=== PATIENT | female | born 1950 | race Caucasian/White ===

== ENCOUNTER 2018-06-29 05:35 | Inpatient (IN) ==
[2018-06-22 13:24] LABS: Basophils % 0.5 % (0.0-0.8); Eosinophils # 0.1 10*3/uL (0.0-0.87); Eosinophils % 1.8 % (0.00-10.9); Hematocrit 42.7 VOL% (35.7-47.0); Hemoglobin 13.5 GM/DL (12.0-16.0); Immature Granulocytes % 0.3 %; Immature Granulocytes Absolute 0.02 #; Lymphocytes % 25.4 % (21.3-54.2); Mean Corpuscular HGB Conc 31.6 GM/DL (32-36); Mean Corpuscular Hemoglobin 30 PG (27-34); Mean Corpuscular Volume 94.5 FL (87-102); Mean Platelet Volume 12.6 FL (9.6-12.0); Monocytes # 0.6 10*3/uL (0.11-0.8); Monocytes % 7.4 % (1.7-12.7); Neutrophils % 64.6 % (38.7-73.9); Platelet Count 144 T/CUMM (130-400); Red Blood Count 4.52 MC/CUMM (3.8-5.5); Red Cell Distribution Width 13.2 % (9.3-17.3); White Blood Count 7.8 T/CUMM (4-12)
[2018-06-22 13:33] LABS: Apearance,Urine Slightly Hazy (Clear); Bilirubin,Urine Negative (Negative); Blood, Urine Negative (Negative); Glucose,Urine (UA) Negative (Negative); Ketones,Urine Negative (Negative); Mucus,Urine Occasional /LPF (Occasional); Nitrite,Urine Negative (Negative); PT Patient Result 10.8 SECS; Partial Thromboplastin Time 27.9 SECS (0-40); Protein,Urine Negative; RBC,Urine 1 /HPF (0-4); Squamous Epithelial Cell,Urine Occasional /HPF (0-10); Transitional Epi Cells,Urine Occasional /HPF (<1); Urine Color Yellow (Yellow); Urine Specific Gravity 1.024 (1.001-1.035); Urine Urobilinogen < 2.0 EU/DL (0.2-1.0); WBC,Urine 100 /HPF (0-6)
[2018-06-22 13:48] LABS: Albumin 3.5 G/DL (3.4-5.0); Bilirubin,Total 0.4 MG/DL (0.2-1.0); Osmolality,Calculated 281.4 MOS/KG (273-304); Potassium 4.1 MMOL/L (3.5-5.1); Total Protein 7.2 G/DL (6.4-8.3)
[2018-06-29] MEDS ORDERED: ROPIVACAINE 0.5% 30 ML VIAL ONE (06:24)
[2018-06-29] MEDS ORDERED: ceFAZolin 1,000 MG VIAL ONE (06:40)
[2018-06-29] MEDS ORDERED: VANCOMYCIN 1,000 MG VIAL ONE (06:40)
[2018-06-29] MEDS ORDERED: LACTATED RINGERS 1,000 ML IV SCH (07:00)
[2018-06-29] MEDS ORDERED: VANCOMYCIN INJ 1,000 MG in SODIUM CHLORIDE 0.9% 250 ML IV ONE (07:00)
[2018-06-29] MEDS ORDERED: ceFAZolin 1,000 MG in SYRINGE 1 EACH IV ONE (07:00)
[2018-06-29] MEDS ORDERED: BUPIVACAINE SPINAL 0.75% 2 ML AMP SPINAL ONE (07:05)
[2018-06-29] MEDS ORDERED: TRANEXAMIC ACID 1,000 MG/10 ML VIAL ONE (07:44)
[2018-06-29] MEDS ORDERED: BACITRACIN OINT 0.9 GM PACK TOP ONE (08:12)
[2018-06-29] MEDS ORDERED: diphenhydrAMINE CAP 25 MG CAPSULE PO PRN (08:36)
[2018-06-29] MEDS ORDERED: oxyCODONE IR 5 MG TABLET PO PRN (08:36)
[2018-06-29] MEDS ORDERED: MAGNESIUM HYDROXIDE SUSP 30 ML UDCUP PO PRN (08:36)
[2018-06-29] MEDS ORDERED: ZALEPLON 5 MG CAPSULE PO PRN (08:36)
[2018-06-29] MEDS ORDERED: MORPHINE 4 MG/1 ML VIAL IV PRN ×2 (08:36)
[2018-06-29] MEDS ORDERED: ONDANSETRON 4 MG/2 ML VIAL IV PRN (08:44)
[2018-06-29] MEDS: HYDROmorphone 2 MG/1 ML VIAL IV PRN ×2 (08:50→09:00)
[2018-06-29] MEDS ORDERED: fentaNYL 100 MCG/2 ML VIAL ONE (08:51)
[2018-06-29] MEDS ORDERED: MIDAZOLAM 2 MG/2 ML VIAL ONE (08:52)
[2018-06-29] MEDS ORDERED: SODIUM CHLORIDE 0.9% 250 ML IV ONE (08:52)
[2018-06-29] MEDS ORDERED: PROPOFOL 500 MG/50 ML BOTTLE IV ONE (08:52)
[2018-06-29] MEDS ORDERED: LACTATED RINGERS 1,000 ML IV ONE (08:52)
[2018-06-29] MEDS ORDERED: DEXAMETHASONE 4 MG/1 ML VIAL ONE (08:52)
[2018-06-29] MEDS: ONDANSETRON 4 MG/2 ML VIAL IV PRN ×2 (10:11→17:23)
[2018-06-29] MEDS: DOCUSATE SODIUM 100 MG CAPSULE PO SCH ×2 (10:12→21:20)
[2018-06-29] MEDS: KETOROLAC 30 MG/1 ML VIAL IV SCH ×3 (10:12→21:18)
[2018-06-29] MEDS: cycloSPORINE OPH EMUL 1 VIAL BOTH EYES SCH ×2 (10:12→21:19)
[2018-06-29] MEDS: ASPIRIN EC 81 MG TABLET PO SCH (10:12)
[2018-06-29] MEDS: LACTATED RINGERS 1,000 ML IV SCH ×2 (11:12→20:52)
[2018-06-29] MEDS: ceFAZolin 2,000 MG in PREMIX 1 EACH IV SCH ×2 (13:59→23:27)
[2018-06-29] MEDS: ACETAMINOPHEN 500 MG TABLET PO SCH ×2 (14:00→18:42)
[2018-06-29] MEDS: oxyCODONE IR 5 MG TABLET PO PRN (17:22)
[2018-06-29] MEDS: RALOXIFENE 60 MG TABLET PO SCH (21:19)
[2018-06-29] MEDS: LISINOPRIL 20 MG TABLET PO SCH (21:19)
[2018-06-29] MEDS: PITAVASTATIN 2 MG TABLET PO SCH (21:19)
[2018-06-29] MEDS: NEBIVOLOL 5 MG TABLET PO SCH (21:20)
[2018-06-30] MEDS: ACETAMINOPHEN 500 MG TABLET PO SCH ×2 (01:57→06:27)
[2018-06-30] MEDS: KETOROLAC 30 MG/1 ML VIAL IV SCH (03:20)
[2018-06-30 06:06] LABS: Basophils % 0.2 % (0.0-0.8); Eosinophils % 0.1 % (0.00-10.9); Hematocrit 33.9 VOL% (35.7-47.0); Hemoglobin 10.7 GM/DL (12.0-16.0); Immature Granulocytes % 0.3 %; Immature Granulocytes Absolute 0.04 #; Lymphocytes # 1.6 10*3/uL (1.4-4.0); Lymphocytes % 12.5 % (21.3-54.2); Mean Corpuscular HGB Conc 31.6 GM/DL (32-36); Mean Corpuscular Hemoglobin 30 PG (27-34); Mean Corpuscular Volume 93.9 FL (87-102); Mean Platelet Volume 13.2 FL (9.6-12.0); Monocytes # 1.4 10*3/uL (0.11-0.8); Monocytes % 10.6 % (1.7-12.7); Neutrophils % 76.3 % (38.7-73.9); Platelet Count 110 T/CUMM (130-400); Red Blood Count 3.61 MC/CUMM (3.8-5.5); Red Cell Distribution Width 13.2 % (9.3-17.3)
[2018-06-30 06:16] LABS: Calcium 8.5 MG/DL (8.5-10.1); Osmolality,Calculated 283.1 MOS/KG (273-304); Potassium 4.1 MMOL/L (3.5-5.1)
[2018-06-30] MEDS: DOCUSATE SODIUM 100 MG CAPSULE PO SCH ×2 (09:05→21:14)
[2018-06-30] MEDS: CHOLECALCIFEROL 400 UNIT TABLET PO SCH (09:05)
[2018-06-30] MEDS: CLOPIDOGREL 75 MG TABLET PO SCH (09:05)
[2018-06-30] MEDS: LACTOBACILLUS ACIDOPHILUS/BULGARICUS CAPLET PO SCH (09:05)
[2018-06-30] MEDS: PANTOPRAZOLE 40 MG TABLET PO SCH (09:05)
[2018-06-30] MEDS: ASPIRIN EC 81 MG TABLET PO SCH (09:05)
[2018-06-30] MEDS: cycloSPORINE OPH EMUL 1 VIAL BOTH EYES SCH ×2 (09:06→21:12)
[2018-06-30] MEDS: oxyCODONE IR 5 MG TABLET PO PRN (11:57)
[2018-06-30] MEDS: CLORAZEPATE 3.75 MG TABLET PO SCH (14:58)
[2018-06-30] MEDS: CELECOXIB 200 MG CAPSULE PO SCH (15:45)
[2018-06-30] MEDS: ONDANSETRON 4 MG/2 ML VIAL IV PRN (21:09)
[2018-06-30] MEDS: LISINOPRIL 20 MG TABLET PO SCH (21:13)
[2018-06-30] MEDS: RALOXIFENE 60 MG TABLET PO SCH (21:13)
[2018-06-30] MEDS: NEBIVOLOL 5 MG TABLET PO SCH (21:14)
[2018-06-30] MEDS: PITAVASTATIN 2 MG TABLET PO SCH (21:15)
[2018-07-01] MEDS ORDERED: ASPIRIN CHEW 81 MG TABLET PO ONE ×2 (03:34→03:35)
[2018-07-01] MEDS ORDERED: NITROGLYCERIN SL 0.4 MG TABLET SL ONE (03:34)
[2018-07-01 03:51] LABS: Basophils # 0.1 10*3/uL (0.0-0.2); Basophils % 0.5 % (0.0-0.8); Eosinophils # 0.1 10*3/uL (0.0-0.87); Eosinophils % 1.3 % (0.00-10.9); Hematocrit 34.6 VOL% (35.7-47.0); Hemoglobin 10.9 GM/DL (12.0-16.0); Immature Granulocytes % 0.3 %; Immature Granulocytes Absolute 0.03 #; Lymphocytes # 2.7 10*3/uL (1.4-4.0); Lymphocytes % 25.1 % (21.3-54.2); Mean Corpuscular HGB Conc 31.5 GM/DL (32-36); Mean Corpuscular Hemoglobin 30 PG (27-34); Mean Corpuscular Volume 95.8 FL (87-102); Mean Platelet Volume 12.8 FL (9.6-12.0); Monocytes # 1.2 10*3/uL (0.11-0.8); Neutrophils # 6.6 10*3/uL (1.4-7.4); Neutrophils % 61.8 % (38.7-73.9); Platelet Count 105 T/CUMM (130-400); Red Blood Count 3.61 MC/CUMM (3.8-5.5); Red Cell Distribution Width 13.5 % (9.3-17.3); White Blood Count 10.7 T/CUMM (4-12)
[2018-07-01] MEDS: LACTOBACILLUS ACIDOPHILUS/BULGARICUS CAPLET PO SCH (08:45)
[2018-07-01] MEDS: PANTOPRAZOLE 40 MG TABLET PO SCH (08:45)
[2018-07-01] MEDS: CELECOXIB 200 MG CAPSULE PO SCH (08:45)
[2018-07-01] MEDS: CHOLECALCIFEROL 400 UNIT TABLET PO SCH (08:45)
[2018-07-01] MEDS: DOCUSATE SODIUM 100 MG CAPSULE PO SCH (08:45)
[2018-07-01] MEDS: ASPIRIN EC 81 MG TABLET PO SCH (08:45)
[2018-07-01] MEDS: CLOPIDOGREL 75 MG TABLET PO SCH (08:45)
[2018-07-01] MEDS: cycloSPORINE OPH EMUL 1 VIAL BOTH EYES SCH (08:46)
[2018-07-01 16:06] VITALS: BP 151/59
[2018-07-06] MEDS ORDERED: ESTROGENS (CONJ) VAG CREAM 30 GM TUBE VAG SCH (09:00)
== END 2018-07-01 16:55 | disposition home health service (06) | DRG 470 ==
LOC: N.OR 05:35 → N.SDSINP 06:38 → N.3E 08:36
PROVIDERS: ADMIT Orthopaedic Surgery; ATTEND Orthopaedic Surgery